=== PATIENT | female | born 1975 | race Hispanic/Latino ===

== ENCOUNTER 2017-10-10 23:34 | Emergency (ER) | payer BC ==
[2017-10-11] MEDS ORDERED: OSELTAMIVIR PHOSPHATE 75 MG CAP ONE (00:27)
== END 2017-10-11 00:30 | disposition home or self-care (01) ==
LOC: EDH 23:34
DX: J09.X2 Influenza due to identified novel influenza A virus with other respiratory manifestations (principal); Z72.0 Tobacco use
CPT/HCPCS: 71010; 87804

== ENCOUNTER 2017-11-21 01:09 | Emergency (ER) | payer BC ==
[2017-11-21 02:16] LABS: RAPID GROUP A STREP NEGATIVE (NEGATIVE)
[2017-11-21] MEDS ORDERED: OSELTAMIVIR PHOSPHATE 75 MG CAP ONE (02:30)
== END 2017-11-21 02:36 | disposition home or self-care (01) ==
LOC: EDH 01:09
DX: B34.9 Viral infection, unspecified (principal); J10.1 Influenza due to other identified influenza virus with other respiratory manifestations
CPT/HCPCS: 87804; 87880

== ENCOUNTER 2019-07-11 08:23 | Emergency (ER) | payer BC, OTHER ==
[2019-07-11] MEDS ORDERED: ONDANSETRON ODT 4 MG TAB ONE (08:40)
[2019-07-11] MEDS ORDERED: LIDOCAINE HCL 2% VISCOUS 15 ML UDCUP ONE (08:40)
[2019-07-11] MEDS ORDERED: MAG HYDROX/AL HYDROX/SIMETH ES 30 ML SUSP UDCUP ONE (08:40)
[2019-07-11 08:44] LABS: BASOPHILS % (AUTO) 0.4 % (0.0-5.0); EOSINOPHILS % (AUTO) 1.4 % (0.0-8.0); HEMATOCRIT 38.4 % (36-48); LYMPHOCYTES % (AUTO) 10.3 % (21.0-51.0); MEAN CORPUSCULAR HEMOGLOBIN 31.7 pg (27.0-33.0); MEAN CORPUSCULAR HGB CONC 34.2 g/dL (32.0-36.0); MEAN CORPUSCULAR VOLUME 92.8 fL (79-99); MONOCYTES % (AUTO) 7.3 % (3.0-13.0); NEUTROPHILS % (AUTO) 80.6 % (40.0-77.0); NUCLEATED RED BLOOD CELLS 0.1 % (0.0-0.19); PLATELET COUNT (AUTO) 253 K/uL (130-400); RED BLOOD CELL COUNT(AUTO) 4.14 MIL/uL (4.00-5.50); RED CELL DISTRIBUTION WIDTH 14.3 % (11.0-15.5); WHITE BLOOD COUNT (AUTO) 7.7 K/uL (4.8-10.8)
[2019-07-11 08:52] LABS: POTASSIUM 4.1 mmol/L (3.5-5.1)
[2019-07-11 09:02] LABS: ALBUMIN 3.6 g/dL (3.5-5.0); BILIRUBIN,TOTAL 1.5 mg/dL (0.2-1.0); TOTAL PROTEIN, SERUM 7.3 g/dL (6.0-8.3)
== END 2019-07-11 11:51 | disposition home or self-care (01) ==
LOC: EDH 08:23
DX: I10 Essential (primary) hypertension (principal); K76.0 Fatty (change of) liver, not elsewhere classified; R73.9 Hyperglycemia, unspecified; R10.13 Epigastric pain; Z72.0 Tobacco use; Z98.890 Other specified postprocedural states
CPT/HCPCS: 36415; 76705; 80048; 80076; 82550; 83690; 84484; 85025; 93005